=== PATIENT | female | born 1945 | race Caucasian/White ===

== ENCOUNTER 2024-01-21 13:01 | Emergency (ER) | payer MEDICARE ==
[~2024-01-21] VITALS: Ht 157.5 cm; Wt 77.6 kg
[~2024-01-21 13:01] MED LIST: ACETAMINOPHEN325 M1 PO; CEPHALEXIN500 MG PO; METRONIDAZOLE500 MG PO; NIFEDIPINE ER60 MG; ONDANSETRON ODT4 MG PO; PANTOPRAZOLE SO40 MG PO; RAMIPRIL5 MG PO; SENOKOT8.6 MG PO; ULTRAM 50MG50 MG PO
[2024-01-21 13:20] VITALS: TEMP 97.9
[2024-01-21] MEDS: KETOROLAC TROMETHAMINE 30 MG/ML VIAL IM STA (14:15)
[2024-01-21 15:30] VITALS: PULSE 61; RESP 17
[2024-01-21 15:38] VITALS: BP 177/86; PULSE 61; RESP 17; O2SAT 98
== END 2024-01-21 15:32 | disposition home or self-care (01) ==
LOC: ER 13:06
DX: M25.561 Pain in right knee (principal); I10 Essential (primary) hypertension; K21.9 Gastro-esophageal reflux disease without esophagitis
CPT/HCPCS: 93971; 99282; J1885